=== PATIENT | male | born 1970 | race Hispanic/Latino ===

== ENCOUNTER 2021-12-05 13:00 | Outpatient (CLI) | payer BC ==
[2021-12-05 14:12] LABS: #Eosinphils 0.3 10x3/uL (0.0-0.5); #Monocytes 0.7 10x3/uL (0.0-1.1); #Neutrophils 5.2 10x3/uL (1.5-8.4); %Basophils 0.5 % (0.0-2.0); %Lymphocytes 26.2 % (18.0-47.0); %Monocytes 8.2 % (0.0-10.0); %Neutrophils 61.9 % (40.0-75.0); Hemoglobin 13.1 g/dL (13.5-17.5); Mean Corpuscular HGB CONC 32.8 g/dL (32.0-36.0); Mean Corpuscular Hemoglobin 28.9 pg (27.0-33.0); Mean Corpuscular Volume 87.9 fl (81.2-95.1); Mean Platelet Volume 10.6 fl (7.4-10.4); Platelet Count 247 10x3/uL (150-450); RBC Distribution Width 12.7 % (11.5-14.5); Red Blood Cell (RBC) Count 4.54 10x6/uL (4.32-5.72); White Blood Cell (WBC) Count 8.4 10x3/uL (3.5-10.5)
[2021-12-05 14:24] LABS: Anion Gap 13 mmol/L (10-20); BUN (Urea Nitrogen) 20 mg/dL (8.4-25.7); Calc. Creatinine Clearance 0 mL/min (70-130); Calcium 9.3 mg/dL (7.8-10.44); Carbon Dioxide 29 mmol/L (22-29); Chloride 101 mmol/L (98-107); Glucose 85 mg/dL (70-105); Potassium 4.5 mmol/L (3.5-5.1); Sodium 138 mmol/L (136-145)
[2021-12-05 21:45] LABS: SARS-CoV-2 PCR by NAA Not Detected (NotDetected)
== END 2021-12-05 13:01 | disposition home or self-care (01) ==
LOC: LABBT 13:00
PROVIDERS: ATTEND Specialist
DX: Z01.818 Encounter for other preprocedural examination (principal); K40.90 Unilateral inguinal hernia, without obstruction or gangrene, not specified as recurrent; Z20.822 Contact with and (suspected) exposure to COVID-19
CPT/HCPCS: 80048; 85025; 93005; 93010; U0003; U0005

== ENCOUNTER 2021-12-10 06:12 | Day surgery (SDC) | payer BC ==
[2021-12-04 14:27] VITALS: BMI 28.7
[2021-12-10] MEDS ORDERED: Acetaminophen 500 MG TAB ONE ×2 (06:25)
[2021-12-10] MEDS ORDERED: Gabapentin 300 MG CAP ONE (06:26)
[2021-12-10] MEDS ORDERED: Xylocaine 1% w/ Epi 1:100K 10 ML VIAL ONE (06:39)
[2021-12-10] MEDS ORDERED: Bupivacaine 0.25% HCL 30 ML VIAL ONE (06:39)
[2021-12-10] MEDS ORDERED: Ketorolac Tromethamine 30 MG/ML VIAL ONE (07:13)
[2021-12-10] MEDS ORDERED: Midazolam HCl 2 mg/2 ml Vial ONE (08:16)
[2021-12-10] MEDS ORDERED: Dexmedetomidine 200 MCG/2 ML VIAL ONE (08:16)
[2021-12-10] MEDS ORDERED: Fentanyl 250 MCG/5 ML VIAL ONE (08:16)
[2021-12-10] MEDS ORDERED: PROPOFOL 200 MG/20 ML VIAL ONE (08:18)
[2021-12-10] MEDS ORDERED: Lidocaine 1% PF 5 ML VIAL ONE (08:18)
[2021-12-10] MEDS ORDERED: Dexamethasone 20 MG/5 ML VIAL ONE (08:18)
[2021-12-10] MEDS ORDERED: PHENYLEPHRINE-NS 100 MCG/ML 10 ML SYRINGE ONE (08:18)
[2021-12-10] MEDS ORDERED: Rocuronium Bromide 10 MG/ML (10ML VIAL) ONE (08:18)
[2021-12-10] MEDS ORDERED: Ondansetron PF 4 MG/2 ML Vial ONE (08:18)
[2021-12-10] MEDS ORDERED: Glycopyrrolate 0.2 MG/ML 5 ML SYRINGE ONE (08:18)
[2021-12-10] MEDS ORDERED: HYDROcodone/Acetaminophen 5/325 mg Tablet ONE (11:24)
== END 2021-12-10 11:59 | disposition home or self-care (01) ==
LOC: SDC 06:12
PROVIDERS: ATTEND Specialist
PROC: 0YU64JZ Supplement Left Inguinal Region with Synthetic Substitute, Percutaneous Endoscopic Approach (ICD-10-PCS; principal; 2021-12-10)
DX: K40.90 Unilateral inguinal hernia, without obstruction or gangrene, not specified as recurrent (principal); I10 Essential (primary) hypertension; E11.9 Type 2 diabetes mellitus without complications; M19.90 Unspecified osteoarthritis, unspecified site; Z79.84 Long term (current) use of oral hypoglycemic drugs; Z79.899 Other long term (current) drug therapy
CPT/HCPCS: C1781; J1100; J1885; J2250; J2405; J2704; J3010; S0020

== ENCOUNTER 2022-01-15 15:15 | Inpatient (IN) | payer BC ==
[2022-01-15 09:56] VITALS: BMI 27.9
[2022-01-22 11:57] VITALS: BP 129/77; TEMP 98.5
== END 2022-01-22 14:36 | disposition home or self-care (01) | DRG 330 ==
LOC: SURG A 01-20 09:28 → EDSTATUS 01-20 15:15 → SURG B 01-20 17:32
PROVIDERS: ADMIT Specialist; ATTEND Specialist
PROC: 0DBN0ZZ Excision of Sigmoid Colon, Open Approach (ICD-10-PCS; principal; 2022-01-20)
PROC: 0WJG4ZZ Inspection of Peritoneal Cavity, Percutaneous Endoscopic Approach (ICD-10-PCS; 2022-01-20)
DX: K57.20 Diverticulitis of large intestine with perforation and abscess without bleeding (principal); K63.2 Fistula of intestine; K40.90 Unilateral inguinal hernia, without obstruction or gangrene, not specified as recurrent; E11.9 Type 2 diabetes mellitus without complications; M19.90 Unspecified osteoarthritis, unspecified site; Z53.31 Laparoscopic surgical procedure converted to open procedure; Z98.42 Cataract extraction status, left eye; Z98.41 Cataract extraction status, right eye; Z98.890 Other specified postprocedural states; Z79.899 Other long term (current) drug therapy; Z79.84 Long term (current) use of oral hypoglycemic drugs
CPT/HCPCS: 36415; 36416; 80048; 85025; 88307; A4649; C1713; C1776; J0694; J1100; J1170; J1650; J1885; J2250; J2405; J2704; J3010; J3480; J3490; S0020